=== PATIENT | female | born 1970 | race Caucasian/White ===

== ENCOUNTER 2022-09-19 06:23 | Day surgery (SDC) | payer OTHER ==
[~2022-09-19 06:23] MED LIST: Dextrose 5%-0.45% NaCl 1,000 ML IV SCH; Sodium Chloride 0.9% 10 ML Syringe FLUSH PRN; Sodium Chloride 0.9% 10 ML Syringe FLUSH SCH
[2022-09-19] MEDS ORDERED: Midazolam 1 MG/ML 2 ML SDV ONE (06:44)
[2022-09-19] MEDS ORDERED: fentaNYL 100 MCG/2 ML SDV ONE (06:44)
[2022-09-19] MEDS ORDERED: fentaNYL 100 MCG/2 ML SDV IV ONE ×3 (07:31→07:43)
[2022-09-19] MEDS ORDERED: Midazolam 1 MG/ML 2 ML SDV IV ONE ×6 (07:32→07:39)
== END 2022-09-19 09:35 | disposition home or self-care (01) ==
LOC: DL.ENDO 06:23
PROVIDERS: ATTEND Internal Medicine Gastroenterology
DX: K62.5 Hemorrhage of anus and rectum (principal); A09 Infectious gastroenteritis and colitis, unspecified; I10 Essential (primary) hypertension; J45.909 Unspecified asthma, uncomplicated; E66.09 Other obesity due to excess calories; F41.1 Generalized anxiety disorder; Z68.35 Body mass index [BMI] 35.0-35.9, adult
CPT/HCPCS: 45378; J2250; J3010; J7042